=== PATIENT | male | born 1975 | race Native Hawaiian/Other Pacific Islander ===

== ENCOUNTER 2017-12-14 13:43 | Emergency (ER) | payer OTHER ==
[~2017-12-14] VITALS: Ht 182.9 cm; Wt 77.1 kg
[2017-12-14 14:32] LABS: PLATELET COUNT 347 K/uL (142-355)
[2017-12-14 14:37] LABS: POTASSIUM 4.1 mmol/L (3.6-5.2); SODIUM 138 mmol/L (136-145)
[2017-12-14 16:59] VITALS: BP 128/85; TEMP 98.1
== END 2017-12-14 17:02 | disposition home or self-care (01) ==
LOC: ED 13:43
PROVIDERS: Family Medicine
DX: G45.9 Transient cerebral ischemic attack, unspecified (principal); R00.0 Tachycardia, unspecified
CPT/HCPCS: 80053; 80307; 82550; 84484; 85027; 85610; 85730; 93005; 99283

== ENCOUNTER 2018-01-12 18:33 | Emergency (ER) | payer OTHER ==
[~2018-01-12] VITALS: Ht 182.9 cm; Wt 77.1 kg
[2018-01-12] MEDS ORDERED: SEROQUEL100 MG PO (20:05)
[2018-01-12] MEDS ORDERED: GRALISE600 MG PO (20:05)
[2018-01-12] MEDS ORDERED: BUPR8SUB2 PO (20:06)
[2018-01-12 23:24] VITALS: BP 13128/7; TEMP 98.6
== END 2018-01-12 23:27 | disposition home or self-care (01) ==
LOC: ED 18:33
DX: S16.1XXA Strain of muscle, fascia and tendon at neck level, initial encounter (principal); S39.012A Strain of muscle, fascia and tendon of lower back, initial encounter; V49.40XA Driver injured in collision with unspecified motor vehicles in traffic accident, initial encounter
CPT/HCPCS: 99283

== ENCOUNTER 2019-09-23 08:32 | Emergency (ER) | payer OTHER ==
[~2019-09-23] VITALS: Ht 182.9 cm; Wt 70.3 kg
[~2019-09-23 08:32] MED LIST: BUPR8SUB2 PO; GRALISE600 MG PO; SEROQUEL100 MG PO
[2019-09-23 09:15] VITALS: BP 130/76; TEMP 98
== END 2019-09-23 09:15 | disposition home or self-care (01) ==
LOC: ED 08:32
DX: H10.89 Other conjunctivitis (principal)
CPT/HCPCS: 99283

== ENCOUNTER 2020-06-08 18:48 | Emergency (ER) | payer OTHER ==
[~2020-06-08] VITALS: Ht 182.9 cm; Wt 74.8 kg
[2020-06-08 20:20] VITALS: BP 144/82; TEMP 98.3
== END 2020-06-08 20:20 | disposition home or self-care (01) ==
LOC: ED 18:48
PROC: 2W3DX1Z Immobilization of Left Lower Arm using Splint (ICD-10-PCS; principal; 2020-06-08)
DX: M67.432 Ganglion, left wrist (principal)
CPT/HCPCS: 99282